=== PATIENT | female | born 1970 | race Caucasian/White ===

== ENCOUNTER 2017-03-01 07:35 | Emergency (ER) | payer OTHER ==
[2017-03-01 07:43] VITALS: BP 154/79; PULSE 85; TEMP 98.5; BMI 29.1
--- NOTE | 2017-03-01 08:35 | PDOC ---
History of Present Illness - General Chief Complaint: Pain, Acute Stated Complaint: NECK PAIN Time Seen by Provider: 03/01/17 08:06 History Source: Patient Exam Limitations: No Limitations - History of Present Illness Initial Comments: CHIEF COMPLAINT: 46 y/o afebrile female with PMH NIDDM, HTN c/o right sided neck pain x 4 days. HISTORY OF PRESENT ILLNESS: The patient is a business asst. She states she wasn' t doing anything when the pain started. It hurts when she turns her head. she has been taking naproxen once a day and it helps a little bit but there is still a lot of pain. She denies neck trauma, fall, f/c, n/v/d, CP, SOB, dizziness, changes in vision/hearing. 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 Vital signs on arrival are within normal limits. REVIEW OF SYSTEMS: GENERAL/CONSTITUTIONAL: No fever/chills. No weakness. No weight change. HEAD, EYES, EARS, NOSE AND THROAT: No change in vision. No ear pain or discharge. No sore throat. MUSCULOSKELETAL: +right sided neck pain. No joint or muscle swelling or pain. No back pain. SKIN: No rash or easy bruising. NEUROLOGIC: No headache, vertigo, loss of consciousness, or loss of sensation. PHYSICAL EXAM: GENERAL: The patient is awake, alert, and fully oriented, in no acute distress. She is well appearing and ambulatory. HEAD: Normal with no signs of trauma. NECK: No midline cervical spine TTP, step offs or deformities. Reproducible pain with palpation of right scalene and trapezius muscles. No knots or spasms appreciated. Pain reproduced with lateral neck movements towards left shoulder. ENT: Pupils equal, round and reactive to light, extraocular movements intact, sclera anicteric, conjunctiva clear. EXTREMITIES: Normal range of motion, no edema. NEUROLOGICAL: Normal speech, normal gait. CN II-XII grossly intact. SKIN: Warm, dry, normal turgor, no rashes or lesions noted. Past History - Past Medical History Allergies/Adverse Reactions: Allergies Allergy/AdvReac Type Severity Reaction Status Date / Time No Known Allergies Allergy Verified 03/01/17 07:43 Home Medications: Ambulatory Orders Cyclobenzaprine HCl [Flexeril 10 mg] 10 mg PO HS PRN #10 tablet 03/01/17 Ibuprofen 800 mg PO TID #20 tablet 03/01/17 Diabetes: Yes HTN: Yes Hypercholesterolemia: Yes (DIET CONTROLLED) - Surgical History Abdominal Surgery: Yes (sleeve 06/29/15) Cholecystectomy: Yes - Reproductive History (#): 8 Para: 6 Therapeutic (s) & number: Yes Spontaneous : 1 - Immunization History Immunization Up to Date: Yes - Psycho/Social/Smoking Cessation Hx Anxiety: No Suicidal Ideation: No Smoking Status: Yes Smoking History: Never smoked Have you smoked in the past 12 months: No Number of Cigarettes Smoked Daily: 0 If you are a former smoker, when did you quit?: 3 YRS AGO Hx Alcohol Use: No Drug/Substance Use Hx: No Substance Use Type: None Hx Substance Use Treatment: No *Physical Exam - Vital Signs Last Vital Signs Temp Pulse Resp BP Pulse Ox 98.5 F 85 18 154/79 100 03/01/17 07:38 03/01/17 07:38 03/01/17 07:38 03/01/17 07:38 03/01/17 07:38 Medical Decision Making - Medical Decision Making A/P: 46 y/o female with right neck muscle strain. Plan is as follows: 1. hcg hcg - negative IM Toradol Will d/c to home with rx for 800mg Ibuprofen and flexeril for night time. Instructed her to take every 8 hours with food and d/c naproxen. Instructed her to apply heating pad, stretch and massage affected area multiple times per day. Suggested she return to the ER with any worsening or concerning symptoms. The patient verbalizes understanding of all instructions, has no further questions and is awaiting discharge. *DC/Admit/Observation/Transfer Diagnosis at time of Disposition: Neck muscle strain Qualifiers: Encounter type: initial encounter Qualified Code(s): S16.1XXA - Strain of muscle, fascia and tendon at neck level, initial encounter - Discharge Dispostion Condition at time of disposition: Good - Prescriptions Prescriptions: Cyclobenzaprine HCl [Flexeril 10 mg] 10 mg PO HS PRN #10 tablet PRN Reason: Muscle Spasms Ibuprofen 800 mg PO TID #20 tablet - Referrals Referrals: Nilton Markham [Primary Care Provider] - - Patient Instructions Printed Discharge Instructions: DI for Neck Sprain Additional Instructions: Discharge Instructions: - - Post Discharge Activity Work/School Note: Back to Work
[2017-03-01] MEDS ORDERED: KETOROLAC TROMETHAMINE 60 MG/2 ML VIAL ONE (09:07)
[2017-03-01] MEDS ORDERED: KETOROLAC TROMETHAMINE 60 MG/2 ML VIAL IM ONE (09:17)
== END 2017-03-01 09:47 | disposition home or self-care (01) ==
LOC: JER 07:35 → JERFT 07:35
PROC: 3E0233Z Introduction of Anti-inflammatory into Muscle, Percutaneous Approach (ICD-10-PCS; principal; 2017-03-01)
DX: S16.1XXA Strain of muscle, fascia and tendon at neck level, initial encounter (principal); I10 Essential (primary) hypertension; E11.9 Type 2 diabetes mellitus without complications; Z79.84 Long term (current) use of oral hypoglycemic drugs; E78.00 Pure hypercholesterolemia, unspecified; X58.XXXA Exposure to other specified factors, initial encounter; Y93.89 Activity, other specified; Y92.89 Other specified places as the place of occurrence of the external cause
CPT/HCPCS: 84703; 99281-25

== ENCOUNTER 2018-04-03 20:11 | Emergency (ER) | payer OTHER ==
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
[2018-04-03 20:28] VITALS: BP 123/78; PULSE 80; TEMP 98.7; BMI 31.6
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
== END 2018-04-03 21:39 | disposition home or self-care (01) ==
LOC: JERFT 20:11
DX: S16.1XXA Strain of muscle, fascia and tendon at neck level, initial encounter (principal); V43.02XA Car driver injured in collision with other type car in nontraffic accident, initial encounter; Y93.89 Activity, other specified; Y92.410 Unspecified street and highway as the place of occurrence of the external cause; S39.012A Strain of muscle, fascia and tendon of lower back, initial encounter; Z33.1 Pregnant state, incidental; Z87.891 Personal history of nicotine dependence; I10 Essential (primary) hypertension; E11.9 Type 2 diabetes mellitus without complications; E78.00 Pure hypercholesterolemia, unspecified; Z98.84 Bariatric surgery status
CPT/HCPCS: 84703; 99281-25

== ENCOUNTER 2018-04-18 16:17 | Emergency (ER) | payer OTHER ==
[2018-04-18 16:39] VITALS: BP 125/71; PULSE 79; TEMP 98.4; BMI 31.6
--- NOTE | 2018-04-18 17:10 | PDOC ---
History of Present Illness - General History Source: Patient Exam Limitations: No Limitations - History of Present Illness Initial Comments: 04/18/18 17:34 The patient is a 47 year old female A2 who is 6.5 weeks with a significant PMH of gestational diabetes hyperlipidemia who presents to the emergency department with vaginal spotting beginning approximately today. The patient states the last few times she has urinated shes noticed blood on the tissue when wiping, and noted a small clot during one episode. The patient denies cramping or vaginal discharge. She reports going to [facility] yesterday for an LITHOGRAPHIC PHOTOGRAPHER APPRENTICE appointment where she received an internal digital exam. The patient denies dysuria, frequency, and urgency. The patient denies chest pain, shortness of breath, headache and dizziness. Denies fever, chills, nausea, vomit, diarrhea and constipation. Allergies: NKA Past surgical history: Cholecystectomy. Elective . Social history: Former smoker. No reported alcohol, or drug use. PCP: Dr. Nolasco LITHOGRAPHIC PHOTOGRAPHER APPRENTICE: [facility] <Cipriano Martinez - Last Filed: 04/18/18 17:33> <Deborah Wong - Last Filed: 04/18/18 20:28> - General Chief Complaint: Vaginal Bleeding Stated Complaint: PCP SENT/VAGINAL BLEEDING/6.5 WKS Time Seen by Provider: 04/18/18 16:51 Past History <Cipriano Martinez - Last Filed: 04/18/18 17:33> - Past Medical History COPD: No Diabetes: Yes HTN: Yes Hypercholesterolemia: Yes (DIET CONTROLLED) - Surgical History Abdominal Surgery: Yes (sleeve 06/29/15) Cholecystectomy: Yes - Reproductive History (#): 8 Para: 6 Therapeutic (s) & number: Yes Spontaneous : 1 - Immunization History Immunization Up to Date: Yes - Suicide/Smoking/Psychosocial Hx Smoking Status: Yes Smoking History: Never smoked Have you smoked in the past 12 months: No Number of Cigarettes Smoked Daily: 0 If you are a former smoker, when did you quit?: 3 YRS AGO Hx Alcohol Use: No Drug/Substance Use Hx: No Substance Use Type: None Hx Substance Use Treatment: No <Deborah Wong - Last Filed: 04/18/18 20:28> - Past Medical History Allergies/Adverse Reactions: Allergies Allergy/AdvReac Type Severity Reaction Status Date / Time No Known Allergies Allergy Verified 04/18/18 16:34 Home Medications: Ambulatory Orders 95/Iron Fum/Folic/Dha [ + Dha Combo Pack] 1 each PO 1XPACU #30 combo..pkg 04/03/18 Review of Systems - Review of Systems Able to Perform ROS?: Yes Comments:: 04/18/18 17:33 GENERAL/CONSTITUTIONAL: No fever or chills. No weakness. HEAD, EYES, EARS, NOSE AND THROAT: No change in vision. No ear pain or discharge. No sore throat. GASTROINTESTINAL: No nausea, vomiting, diarrhea or constipation. GENITOURINARY: (+) Vaginal spotting. No dysuria, frequency, or change in urination. CARDIOVASCULAR: No chest pain or shortness of breath. RESPIRATORY: No cough, wheezing, or hemoptysis. MUSCULOSKELETAL: No joint or muscle swelling or pain. No neck or back pain. SKIN: No rash NEUROLOGIC: No headache, vertigo, loss of consciousness, or change in strength/ sensation. ENDOCRINE: No increased thirst. No abnormal weight change. HEMATOLOGIC/LYMPHATIC: No anemia, easy bleeding, or history of blood clots. ALLERGIC/IMMUNOLOGIC: No hives or skin allergy. <Cipriano Martinez - Last Filed: 04/18/18 17:33> *Physical Exam - Vital Signs Last Vital Signs Temp Pulse Resp BP Pulse Ox 98.4 F 79 16 125/71 100 04/18/18 16:34 04/18/18 16:34 04/18/18 16:34 04/18/18 16:34 04/18/18 16:34 - Physical Exam Comments: 04/18/18 17:33 Constitutional: Awake, alert, oriented. No acute distress. Head: Normocephalic. Atraumatic Cardiovascular: Regular rate. Regular rhythm. S1, S2 regular. Distal pulses are 2+ and symmetric. Pulmonary/Chest: No evidence of respiratory distress. Clear to auscultation bilaterally No wheezing, rales or rhonchi. Abdominal: Soft and non-distended. There is no tenderness. No rebound, guarding or rigidity. No organomegaly. No palpable masses. Good bowel sounds. Pelvic: Some blood in vault. Os closed. No CMT or adnexal tenderness. Back: No CVA tenderness. Musculoskeletal: No edema. No cyanosis. No clubbing. Full range of motion in all extremities. No calf tenderness. Radial/pedal pulses are intact and 2+ bilaterally Skin: Skin is warm and dry. No petechiae. No purpura. Neurological: Alert and oriented to person, place, and time. Cranial nerves II -XII are grossly intact. Normal speech. Strength is grossly symmetric. No sensory deficits. Psychiatric: Good eye contact. Normal interaction, affect and behavior. <Cipriano Martinez - Last Filed: 04/18/18 17:33> - Vital Signs Last Vital Signs Temp Pulse Resp BP Pulse Ox 98.4 F 79 16 125/71 100 04/18/18 16:34 04/18/18 16:34 04/18/18 16:34 04/18/18 16:34 04/18/18 16:34 <Deborah Wong - Last Filed: 04/18/18 20:28> ED Treatment Course - LABORATORY CBC & Chemistry Diagram: 04/18/18 17:27 04/18/18 17:27 <Deborah Wong - Last Filed: 04/18/18 20:28> Medical Decision Making - Medical Decision Making 04/18/18 17:36 a/p: 47yo at 6.5 weeks gestation presents for eval of scant amount of vaginal bleeding while wiping today -pt with hx of spontaneous ab -no cramping -seen at [address] [place] [address] yesterday, no ultrasound yet with this preg -will send labs -tvus -concern for threatened ab -will monitor and reassess 04/18/18 18:35 beta pending probable early preg on ultrasound around 5 weeks 5 days will continue to monitor 04/18/18 18:58 beta hcg and type and screen pending 04/18/18 19:25 pt is O+ on prior type and screen 04/18/18 20:22 beta hcg 3800 pt will need repeat beta hcg in 2 days and repeat ultrasound in 1 week concern for threatened ab 04/18/18 20:25 pt feeling better has appt [facility] tomorrow with director of elementary education discussed repeat labs on sunday for repeat beta hcg answered all quesitons stable for d/c to home <Deborah Wong - Last Filed: 04/18/18 20:28> *DC/Admit/Observation/Transfer - Attestations Scribe Attestion: 04/18/18 17:35 Documentation prepared by Cipriano Martinez, acting as medical operations supervisor for Deborah Wong DO. <Cipriano Martinez - Last Filed: 04/18/18 17:33> - Discharge Dispostion Decision to Admit order: No - Attestations Physician Attestion: 04/18/18 20:28 I, Dr. Deborah Wong DO, attest that this document has been prepared under my direction and personally reviewed by me in its entirety. I further attest, that it accurately reflects all work, treatment, procedures and medical decision -making performed by me. <Deborah Wong - Last Filed: 04/18/18 20:28> Diagnosis at time of Disposition: Threatened - Discharge Dispostion Disposition: HOME Condition at time of disposition: Stable - Referrals Referrals: Milly Nolasco [Primary Care Provider] - Kenneth Berman MD [Staff Physician] - - Patient Instructions Printed Discharge Instructions: DI for Threatened Additional Instructions: Please go to your materials director tomorrow as scheduled. Please return to the ED for a repeat Beta HCG on sunday. Please return to the ED for a repeat evaluation if you start to bleed heavily - more than 2 pads an hour for over 2 hours. Please follow up with your PMD. Please take vitamins. Please return to the ED with any further concerns or complaints. - Post Discharge Activity
[2018-04-18 18:07] LABS: BASO % 0.7 % (0-2.0); EOS % 1.2 % (0-4.5); HEMATOCRIT 35.6 % (32.4-45.2); HEMOGLOBIN 10.8 GM/dL (10.7-15.3); LYMPH % 35.4 % (8-40); MCH 20.8 pg (25.7-33.7); MCHC 30.4 g/dl (32.0-36.0); MEAN CELL VOLUME 68.5 fl (80-96); MEAN PLT VOLUME 8.7 fl (7.5-11.1); MONO % 6.8 % (3.8-10.2); NEUT % 55.9 % (42.8-82.8); PLATELET COUNT 419 K/MM3 (134-434); RBC 5.19 M/mm3 (3.60-5.2); URINE APPEARANCE CLEAR; URINE BILIRUBIN NEGATIVE (<2.0 mg/dL); URINE COLOR STRAW; URINE GLUCOSE (UA) NEGATIVE (NEGATIVE); URINE KETONE NEGATIVE (NEGATIVE); URINE LEUK ESTERASE NEGATIVE (NEGATIVE); URINE NITRITE NEGATIVE (NEGATIVE); URINE PROTEIN NEGATIVE (NEGATIVE); URINE UROBILINOGEN NEGATIVE mg/dL (0.2-1.0)
[2018-04-18 18:13] LABS: ADD RBC MORPHOLOGY YES
[2018-04-18 18:35] LABS: ALBUMIN 3.8 g/dl (3.4-5.0); ANION GAP 8 (8-16); BLOOD UREA NITROGEN 15 mg/dL (7-18); CALCIUM 9.3 mg/dL (8.5-10.1); CHLORIDE 102 mmol/L (98-107); CO2 28 mmol/L (21-32); GLUCOSE,RANDOM 96 mg/dL (74-106); POTASSIUM 3.7 mmol/L (3.5-5.1); SGPT/ALT 19 U/L (12-78); SODIUM 138 mmol/L (136-145)
[2018-04-18 18:38] LABS: ALK PHOS 69 U/L (45-117); BILIRUBIN,TOTAL 0.5 mg/dL (0.2-1.0); CREATININE 0.7 mg/dL (0.55-1.02); SGOT/AST 10 U/L (15-37)
[2018-04-18 22:36] LABS: ANISOCYTOSIS 1+; MACROCYTOSIS 1+; PLATELET ESTIMATE ADEQUATE
== END 2018-04-18 21:07 | disposition home or self-care (01) ==
LOC: JER 16:17
DX: O26.891 Other specified pregnancy related conditions, first trimester (principal); O20.0 Threatened abortion; Z3A.01 Less than 8 weeks gestation of pregnancy; E78.5 Hyperlipidemia, unspecified; Z86.32 Personal history of gestational diabetes; O16.1 Unspecified maternal hypertension, first trimester; Z87.891 Personal history of nicotine dependence; Z90.49 Acquired absence of other specified parts of digestive tract; Z98.84 Bariatric surgery status
CPT/HCPCS: 36415; 76817-TC; 80053; 81003; 84702; 85025; 99281-25

== ENCOUNTER 2019-03-27 09:56 | Emergency (ER) | payer OTHER | END 2019-03-27 16:38 | disposition home or self-care (01) | LOC: JER 09:56 ==

== ENCOUNTER 2019-10-15 22:44 | Emergency (ER) | payer OTHER ==
[2019-10-15 22:50] VITALS: BP 177/102; PULSE 105; TEMP 97.9; BMI 33.3
--- NOTE | 2019-10-16 00:01 | PDOC ---
Attending Attestation - Resident Resident Name: Shar Mi - ED Attending Attestation I have performed the following: I have examined & evaluated the patient, The case was reviewed & discussed with the resident, I agree w/resident's findings & plan - HPI HPI: 10/16/19 01:02 see resident hpi - Physicial Exam PE: 10/16/19 01:02 agree with resident exam - Medical Decision Making 10/16/19 01:02 49-year-old female with upper respiratory symptoms cough and right ear pain after forcefully attempting to unplug her nose Exam is consistent with barotrauma to the right ear She is outside the window for antivirals Will DC on antitussives with recommended outpatient follow-up
--- NOTE | 2019-10-16 00:01 | PDOC ---
History of Present Illness - General Chief Complaint: Ear Problem Stated Complaint: THROAT/EAR PAIN Time Seen by Provider: 10/15/19 23:58 - History of Present Illness Initial Comments: 49 10/16/19 00:00 Past History - Past Medical History Allergies/Adverse Reactions: Allergies Allergy/AdvReac Type Severity Reaction Status Date / Time No Known Allergies Allergy Verified 03/27/19 10:18 Home Medications: Ambulatory Orders Diclofenac Sodium [Diclofenac Sodium ER] 100 mg PO ASDIR 03/27/19 Ranitidine [Zantac -] 150 mg PO BID 03/27/19 metFORMIN HCL [Metformin ER Osmotic] 1,000 mg PO DAILY 03/27/19 COPD: No Diabetes: Yes HTN: Yes Hypercholesterolemia: Yes (DIET CONTROLLED) - Surgical History Abdominal Surgery: Yes (sleeve 06/29/15) Cholecystectomy: Yes - Reproductive History (#): 9 Para: 6 Therapeutic (s) & number: Yes Spontaneous : 2 - Immunization History Immunization Up to Date: Yes - Psycho Social/Smoking Cessation Hx Smoking Status: Yes Smoking History: Never smoked Have you smoked in the past 12 months: No Number of Cigarettes Smoked Daily: 0 If you are a former smoker, when did you quit?: 3 YRS AGO Hx Alcohol Use: No Drug/Substance Use Hx: No Substance Use Type: None Hx Substance Use Treatment: No *Physical Exam - Vital Signs Last Vital Signs Temp Pulse Resp BP Pulse Ox 97.9 F 105 H 20 177/102 H 100 10/15/19 22:46 10/15/19 22:46 10/15/19 22:46 10/15/19 22:46 10/15/19 22:46
--- NOTE | 2019-10-16 00:24 | PDOC ---
History of Present Illness - General Chief Complaint: Ear Problem Stated Complaint: THROAT/EAR PAIN Time Seen by Provider: 10/15/19 23:58 - History of Present Illness Initial Comments: 10/16/19 00:18 49F with pmh of htn and dm2 presenting with cough non-stop for 3 days as well as fever (101 at home post tylenol at 5pm) and right ear pain from blowing her nose. No other complain. No sick contacts. No fever here. Denies n/v/d. Past History - Past Medical History Allergies/Adverse Reactions: Allergies Allergy/AdvReac Type Severity Reaction Status Date / Time No Known Allergies Allergy Verified 03/27/19 10:18 Home Medications: Ambulatory Orders Diclofenac Sodium [Diclofenac Sodium ER] 100 mg PO ASDIR 03/27/19 Ranitidine [Zantac -] 150 mg PO BID 03/27/19 metFORMIN HCL [Metformin ER Osmotic] 1,000 mg PO DAILY 03/27/19 Benzonatate [Tessalon Pearls -] 100 mg PO TID #90 capsule 10/16/19 COPD: No Diabetes: Yes HTN: Yes Hypercholesterolemia: Yes (DIET CONTROLLED) - Surgical History Abdominal Surgery: Yes (sleeve 06/29/15) Cholecystectomy: Yes - Reproductive History (#): 9 Para: 6 Therapeutic (s) & number: Yes Spontaneous : 2 - Immunization History Immunization Up to Date: Yes - Psycho Social/Smoking Cessation Hx Smoking Status: Yes Smoking History: Never smoked Have you smoked in the past 12 months: No Number of Cigarettes Smoked Daily: 0 If you are a former smoker, when did you quit?: 3 YRS AGO Hx Alcohol Use: No Drug/Substance Use Hx: No Substance Use Type: None Hx Substance Use Treatment: No Review of Systems - Review of Systems Able to Perform ROS?: Yes Is the patient limited Austrian proficient: No Constitutional: No: Symptoms Reported HEENTM: Yes: See HPI Respiratory: Yes: See HPI Cardiac (ROS): No: Symptoms Reported ABD/GI: No: Symptoms Reported : No: Symptoms Reported Musculoskeletal: No: Symptoms Reported Integumentary: No: Symptoms Reported Neurological: No: Symptoms reported All Other Systems: Reviewed and Negative *Physical Exam - Vital Signs Last Vital Signs Temp Pulse Resp BP Pulse Ox 97.9 F 105 H 20 177/102 H 100 10/15/19 22:46 10/15/19 22:46 10/15/19 22:46 10/15/19 22:46 10/15/19 22:46 - Physical Exam General Appearance: Yes: Nourished, Appropriately Dressed. No: Apparent Distress HEENT: positive: EOMI, ARNIE, Other (minor barotrauma to the right ear, some burst capillaries, Tm intact. ) Respiratory/Chest: positive: Lungs Clear, Normal Breath Sounds. negative: Chest Tender, Respiratory Distress Cardiovascular: positive: Tachycardia Gastrointestinal/Abdominal: positive: Normal Bowel Sounds, Flat, Soft. negative : Tender Extremity: positive: Normal Capillary Refill, Normal Inspection, Normal Range of Motion Integumentary: positive: Normal Color, Dry, Warm Neurologic: positive: Fully Oriented, Alert, Normal Mood/Affect, Normal Response Medical Decision Making - Medical Decision Making 10/16/19 00:26 49f sick with cold symptoms for 3 days. Out of the window for flu therapy. Will send home with franky vergara for cough. Sudofed not recommended due to high BP. Will send home with recommendations and return precautions. Discharge - Discharge Information Problems reviewed: Yes Clinical Impression/Diagnosis: Cough, Rhinovirus Condition: Fair Disposition: HOME - Admission No - Additional Discharge Information Prescriptions: Benzonatate [Tessalon Pearls -] 100 mg PO TID #90 capsule - Follow up/Referral - Patient Discharge Instructions Patient Printed Discharge Instructions: How to Avoid a Cold or Flu Additional Instructions: Follow up with your primary care physician within the next 3 days. Avoid blowing your nose too hard as you may damage your eardrum. Come back to the emergency department for any new, worsening or concerning symptom. - Post Discharge Activity
== END 2019-10-16 00:44 | disposition home or self-care (01) ==
LOC: JER 22:44
DX: B34.8 Other viral infections of unspecified site (principal); R05 Cough; I10 Essential (primary) hypertension; E78.00 Pure hypercholesterolemia, unspecified; E11.9 Type 2 diabetes mellitus without complications; Z79.84 Long term (current) use of oral hypoglycemic drugs; Z90.49 Acquired absence of other specified parts of digestive tract; Z98.84 Bariatric surgery status
CPT/HCPCS: 99281-25

== ENCOUNTER 2021-06-01 06:55 | Day surgery (SDC) | payer OTHER ==
[2021-05-31 14:34] VITALS: BMI 31.6
[2021-06-01] MEDS ORDERED: BUPIVACAINE HCL/PF 0.25% (2.5MG/ML) 10 ML VIAL ONE (09:24)
[2021-06-01] MEDS ORDERED: LIDOCAINE HCL/PF 2% SDV 5ML VIAL ONE (09:43)
[2021-06-01] MEDS ORDERED: PROPOFOL 20 ML ONE ×2 (09:44)
[2021-06-01] MEDS ORDERED: SUCCINYLCHOLINE CHLORIDE 200 MG/10 ML SYRINGE ONE (09:44)
[2021-06-01] MEDS ORDERED: oxyCODONE HCL 5 MG TABLET PO PRN (11:02)
[2021-06-01] MEDS ORDERED: PROMETHAZINE HCL 25 MG/1 ML VIAL IVPB PRN (11:02)
[2021-06-01] MEDS ORDERED: ONDANSETRON 4 MG/2 ML VIAL IVPUSH PRN (11:02)
[2021-06-01] MEDS ORDERED: ACETAMINOPHEN 1000 MG/100 ML VIAL (NON FORMULARY) IVPB ONE ×2 (11:38→11:51)
[2021-06-01] MEDS ORDERED: LACTATED RINGERS SOLUTION 1,000 ML/1,000 ML INFUS.BAG IV SCH (12:00)
[2021-06-01 13:12] VITALS: BP 110/65; PULSE 89; TEMP 98
== END 2021-06-01 13:00 | disposition home or self-care (01) ==
LOC: FASU 06:55
PROVIDERS: ATTEND Orthopaedic Surgery Hand Surgery
PROC: 0JBD0ZZ Excision of Right Upper Arm Subcutaneous Tissue and Fascia, Open Approach (ICD-10-PCS; 2021-06-01)
PROC: 0LQ30ZZ Repair Right Upper Arm Tendon, Open Approach (ICD-10-PCS; principal; 2021-06-01 10:05)
DX: M77.11 Lateral epicondylitis, right elbow (principal)
CPT/HCPCS: 82962; 84703; 88304-TC; 94760; J0131

== ENCOUNTER 2022-01-12 09:58 | Day surgery (SDC) | payer OTHER ==
[2022-01-10 12:14] VITALS: BMI 31.6
[2022-01-12] MEDS ORDERED: PROPOFOL 20 ML ONE ×2 (12:07→13:31)
[2022-01-12] MEDS ORDERED: MIDAZOLAM HCL 2 MG/2 ML SINGLE DOSE VIAL ONE (12:07)
[2022-01-12] MEDS ORDERED: ROCURONIUM BROMIDE 50 MG/5 ML SYRINGE ONE ×2 (12:08→14:43)
[2022-01-12] MEDS ORDERED: NEOSTIGMINE METHYLSULFATE 0.5 MG/ML - 10 ML MDV ONE (15:21)
[2022-01-12] MEDS ORDERED: ONDANSETRON 4 MG/2 ML VIAL IVPUSH PRN (15:40)
[2022-01-12] MEDS ORDERED: oxyCODONE HCL 5 MG TABLET PO PRN (15:40)
[2022-01-12] MEDS ORDERED: PROMETHAZINE HCL 25 MG/1 ML VIAL IVPUSH PRN (15:40)
[2022-01-12] MEDS ORDERED: KETOROLAC TROMETHAMINE 30 MG/1 ML VIAL IVPUSH ONE ×2 (15:41→16:05)
[2022-01-12] MEDS ORDERED: ACETAMINOPHEN 1000 MG/100 ML BAG IVPB ONE ×2 (15:41→16:10)
[2022-01-12] MEDS ORDERED: LACTATED RINGERS SOLUTION 1,000 ML IV SCH (15:45)
[2022-01-12 16:54] VITALS: PULSE 84; TEMP 97.8
[2022-01-12] MEDS ORDERED: oxyCODONE HCL 5 MG TABLET ONE (17:26)
[2022-01-12 18:08] VITALS: BP 117/75
== END 2022-01-12 18:35 | disposition home or self-care (01) ==
LOC: FASU 09:58
PROVIDERS: ATTEND Orthopaedic Surgery Sports Medicine
PROC: 0SB94ZZ Excision of Right Hip Joint, Percutaneous Endoscopic Approach (ICD-10-PCS; 2022-01-12)
PROC: 0SQ94ZZ Repair Right Hip Joint, Percutaneous Endoscopic Approach (ICD-10-PCS; principal; 2022-01-12 13:34)
DX: M76.01 Gluteal tendinitis, right hip (principal)
CPT/HCPCS: 82962; 84703; 94760

== ENCOUNTER 2022-05-10 19:19 | Emergency (ER) | payer OTHER ==
[2022-05-10 19:31] VITALS: BP 150/81; PULSE 76; TEMP 98.9; BMI 31.6
[2022-05-10] MEDS ORDERED: ACETAMINOPHEN 500 MG TABLET (FP) PO ONE (21:01)
[2022-05-10] MEDS ORDERED: LIDOCAINE 5% TOPICAL PATCH TP ONE (21:01)
[2022-05-10] MEDS ORDERED: METHOCARBAMOL 500 MG TABLET PO ONE (21:01)
[2022-05-10] MEDS ORDERED: KETOROLAC TROMETHAMINE 30 MG/1 ML VIAL IM ONE (21:01)
[2022-05-10] MEDS ORDERED: LIDOCAINE 5% TOPICAL PATCH ONE (21:05)
[2022-05-10] MEDS ORDERED: ACETAMINOPHEN 325 MG TABLET (FP) ONE (21:05)
[2022-05-10] MEDS ORDERED: METHOCARBAMOL 500 MG TABLET ONE (21:05)
[2022-05-10] MEDS ORDERED: KETOROLAC TROMETHAMINE 30 MG/1 ML VIAL ONE (21:05)
[2022-05-10] MEDS ORDERED: LIDOCAINE PATCH REMOVAL MC SCH (22:00)
== END 2022-05-10 23:02 | disposition home or self-care (01) ==
LOC: JER 19:19
PROC: 3E023GC Introduction of Other Therapeutic Substance into Muscle, Percutaneous Approach (ICD-10-PCS; principal; 2022-05-10)
DX: M25.551 Pain in right hip (principal)
CPT/HCPCS: 99284-25

== ENCOUNTER 2022-09-21 08:19 | Emergency (ER) | payer OTHER ==
[2022-09-21 09:00] VITALS: BP 159/92; PULSE 79; RESP 18; TEMP 97.9; BMI 30.7
[2022-09-21] MEDS ORDERED: ACETAMINOPHEN 325 MG TABLET (FP) PO ONE (11:45)
[2022-09-21] MEDS ORDERED: METOCLOPRAMIDE HCL 10 MG TABLET (FP) PO ONE ×2 (11:46→12:40)
[2022-09-21 12:23] LABS: EOS % 3.8 % (0-4.5); HEMOGLOBIN 11.5 GM/dL (10.7-15.3); LYMPH % 41.6 % (8-40); MCHC 32.1 g/dl (32.0-36.0); MEAN CELL VOLUME 81.2 fl (80-96); MEAN PLT VOLUME 8.3 fl (7.5-11.1); MONO % 7.7 % (3.8-10.2); NEUT % 45.9 % (42.8-82.8); PLATELET COUNT 312 10^3/uL (134-434); RBC 4.44 M/mm3 (3.60-5.2); RDW 16.1 % (11.6-15.6); WHITE BLOOD COUNT 8.1 K/mm3 (4.0-10.0)
[2022-09-21] MEDS ORDERED: ACETAMINOPHEN 325 MG TABLET (FP) ONE (12:40)
[2022-09-21 12:53] LABS: BLOOD UREA NITROGEN 8.2 mg/dL (7-18)
[2022-09-21 12:54] LABS: CALCIUM 9.1 mg/dL (8.5-10.1)
[2022-09-21 12:55] LABS: ALBUMIN 3.3 g/dl (3.4-5.0)
[2022-09-21 12:56] LABS: BILIRUBIN,TOTAL 0.6 mg/dL (0.2-1)
[2022-09-21 12:58] LABS: CREATININE 0.7 mg/dL (0.55-1.3); TOT PROT 7.1 g/dl (6.4-8.2)
== END 2022-09-21 15:21 | disposition home or self-care (01) ==
LOC: JER 08:19
DX: R20.2 Paresthesia of skin (principal)
CPT/HCPCS: 36415; 70450-TC; 80053; 85025; 93005; 93010; 99285-25

== ENCOUNTER 2022-11-20 08:04 | Emergency (ER) | payer OTHER ==
[2022-11-20 08:19] VITALS: RESP 18; BMI 30.6
[2022-11-20] MEDS ORDERED: FAMOTIDINE 20 MG TABLET PO ONE (09:30)
[2022-11-20] MEDS ORDERED: MAG HYDROX/AL HYDROX/SIMETH 30 ML UNIT-DOSE CUP PO ONE (09:30)
[2022-11-20] MEDS ORDERED: MAG HYDROX/AL HYDROX/SIMETH 30 ML UNIT-DOSE CUP ONE (09:41)
[2022-11-20] MEDS ORDERED: FAMOTIDINE 20 MG TABLET ONE (09:41)
[2022-11-20] MEDS ORDERED: LACTATED RINGERS SOLUTION 1000 ML INFUS.BAG IV ONE (10:52)
[2022-11-20 11:09] LABS: HEMATOCRIT 33.6 % (32.4-45.2); HEMOGLOBIN 10.9 GM/dL (10.7-15.3); MCH 26.1 pg (25.7-33.7); MCHC 32.4 g/dl (32.0-36.0); MEAN CELL VOLUME 80.6 fl (80-96); MEAN PLT VOLUME 8.4 fl (7.5-11.1); PLATELET COUNT 306 10^3/uL (134-434); RBC 4.17 M/mm3 (3.60-5.2); RDW 16.2 % (11.6-15.6); WHITE BLOOD COUNT 6.4 K/mm3 (4.0-10.0)
[2022-11-20 11:25] LABS: CHLORIDE 103 mmol/L (98-107); SODIUM 138 mmol/L (136-145)
[2022-11-20 11:28] LABS: ALBUMIN 3.1 g/dl (3.4-5.0); ANION GAP 5 MMOL/L (8-16); BLOOD UREA NITROGEN 8.4 mg/dL (7-18); CALCIUM 8.8 mg/dL (8.5-10.1); CO2 30 mmol/L (21-32); GLUCOSE,RANDOM 88 mg/dL (74-106); LIPASE 93 U/L (73-393)
[2022-11-20 11:32] LABS: CREATININE 0.6 mg/dL (0.55-1.3); SGOT/AST 10 U/L (15-37); SGPT/ALT 18 U/L (13-61); TOT PROT 6.6 g/dl (6.4-8.2)
[2022-11-20 11:33] LABS: BILIRUBIN,TOTAL 0.5 mg/dL (0.2-1)
[2022-11-20 11:34] LABS: ALK PHOS 74 U/L (45-117)
[2022-11-20 11:42] VITALS: BP 114/70; PULSE 60; TEMP 98.5
[2022-11-20 11:46] LABS: EPI CELLS 6 /uL (0-25.1); HYALINE CASTS 0 /uL (0-3.1); PH,URINE 5.5 (5.0-8.0); URINE APPEARANCE CLEAR; URINE BACTERIA 6151 /uL (0-1359); URINE BILIRUBIN NEGATIVE (NEGATIVE); URINE COLOR YELLOW; URINE GLUCOSE (UA) NEGATIVE (NEGATIVE); URINE KETONE NEGATIVE (NEGATIVE); URINE LEUK ESTERASE NEGATIVE (NEGATIVE); URINE NITRITE NEGATIVE (NEGATIVE); URINE PROTEIN NEGATIVE (NEGATIVE); URINE RBC 20 /uL (0-23.9); URINE UROBILINOGEN 0.2 mg/dL (0.2-1.0); URINE WBC 15 /uL (0-25.8)
== END 2022-11-20 14:16 | disposition home or self-care (01) ==
LOC: JER 08:04
DX: K29.70 Gastritis, unspecified, without bleeding (principal)
CPT/HCPCS: 36415; 71045-TC-FY; 80053; 81003; 82272; 83690; 84484; 84702; 85027; 87086; 87186; 93005; 93010; 99285-25

== ENCOUNTER 2023-01-09 05:24 | Day surgery (SDC) | payer OTHER ==
[2023-01-04 16:52] VITALS: BMI 32.1
[2023-01-09 12:04] VITALS: TEMP 97.5
[2023-01-09 13:26] VITALS: BP 132/70; PULSE 58; RESP 19
== END 2023-01-09 12:37 | disposition home or self-care (01) ==
LOC: JASU-ENDO 05:24
PROVIDERS: ATTEND Internal Medicine Gastroenterology
PROC: 0DB78ZX Excision of Stomach, Pylorus, Via Natural or Artificial Opening Endoscopic, Diagnostic (ICD-10-PCS; principal; 2023-01-09 12:00)
DX: K29.50 Unspecified chronic gastritis without bleeding (principal); K25.9 Gastric ulcer, unspecified as acute or chronic, without hemorrhage or perforation; K44.9 Diaphragmatic hernia without obstruction or gangrene; K31.7 Polyp of stomach and duodenum; Z98.84 Bariatric surgery status
CPT/HCPCS: 81025; 82962; 88305-TC; 88342-TC

== ENCOUNTER 2023-02-27 04:20 | Day surgery (SDC) | payer OTHER ==
[2023-02-26 07:44] VITALS: BMI 32.1
[2023-02-27 08:03] VITALS: TEMP 98
[2023-02-27 12:07] VITALS: BP 120/48; PULSE 65; RESP 19
== END 2023-02-27 10:20 | disposition home or self-care (01) ==
LOC: JASU-ENDO 04:20
PROVIDERS: ATTEND Internal Medicine Gastroenterology
PROC: 0DJD8ZZ Inspection of Lower Intestinal Tract, Via Natural or Artificial Opening Endoscopic (ICD-10-PCS; principal; 2023-02-27 08:45)
DX: Z12.11 Encounter for screening for malignant neoplasm of colon (principal); K57.30 Diverticulosis of large intestine without perforation or abscess without bleeding; K64.8 Other hemorrhoids
CPT/HCPCS: 81025; 82962

== ENCOUNTER 2023-10-15 09:35 | Emergency (ER) | payer OTHER ==
[2023-10-15 09:46] VITALS: BP 139/88; PULSE 63; RESP 20; TEMP 98; BMI 29.9
[2023-10-15] MEDS ORDERED: IBUPROFEN 600 MG TABLET (FP) PO ONE ×2 (09:55→10:07)
== END 2023-10-15 10:44 | disposition home or self-care (01) ==
LOC: JER 09:35 → JERFT 09:35
DX: S63.602A Unspecified sprain of left thumb, initial encounter (principal); M79.645 Pain in left finger(s); W01.0XXA Fall on same level from slipping, tripping and stumbling without subsequent striking against object, initial encounter
CPT/HCPCS: 73130-TC-LT-FY; 99283-25

== ENCOUNTER 2023-12-03 11:11 | Emergency (ER) | payer OTHER ==
[2023-12-03 11:30] VITALS: BP 159/69; PULSE 85; RESP 18; TEMP 98; BMI 33.1
[2023-12-03 13:02] LABS: BASO % 1.3 % (0-2.0); EOS % 2.8 % (0-4.5); HEMATOCRIT 29.6 % (32.4-45.2); HEMOGLOBIN 8.9 GM/dL (10.7-15.3); LYMPH % 35.5 % (8-40); MCH 20.7 pg (25.7-33.7); MEAN CELL VOLUME 69.1 fl (80-96); MEAN PLT VOLUME 7.2 fl (7.5-11.1); MONO % 7.4 % (3.8-10.2); PLATELET COUNT 371 10^3/uL (134-434); RBC 4.28 M/mm3 (3.60-5.2)
[2023-12-03 13:18] LABS: POTASSIUM 4.5 mmol/L (3.5-5.1)
[2023-12-03 13:20] LABS: ALBUMIN 3.4 g/dl (3.4-5.0); BLOOD UREA NITROGEN 12.7 mg/dL (7-18)
[2023-12-03 13:23] LABS: CREATININE 0.6 mg/dL (0.55-1.3)
[2023-12-03 13:25] LABS: BILIRUBIN,TOTAL 0.4 mg/dL (0.2-1); TOT PROT 7.1 g/dl (6.4-8.2)
== END 2023-12-03 14:01 | disposition home or self-care (01) ==
LOC: JER 11:11
DX: R42 Dizziness and giddiness (principal); I10 Essential (primary) hypertension
CPT/HCPCS: 36415; 80053; 85025; 93005; 93010; 99284-25

== ENCOUNTER 2025-08-10 18:54 | Emergency (ER) | payer OTHER ==
[2025-08-10 19:03] VITALS: BP 140/80; PULSE 102; RESP 17; TEMP 97.8; BMI 30.7
[2025-08-10] MEDS ORDERED: LIDOCAINE 5% TOPICAL PATCH ONE ×2 (20:31→20:32)
[2025-08-10] MEDS ORDERED: ACETAMINOPHEN INJECTION 100 ML ONE (20:31)
[2025-08-10] MEDS: LIDOCAINE 5% TOPICAL PATCH TP ONE ×2 (20:48→20:53)
[2025-08-10] MEDS: ACETAMINOPHEN 1000 MG/100 ML BAG IVPB ONE (20:48)
[2025-08-10 20:52] LABS: ABSOLUTE IMMATURE GRANULOCYTES 0.04 x10^3/uL (0.0-0.031); BASOPHILS # 0.07 x10^3/uL (0.01-0.08); EOSINOPHIL % 2.7 % (0.7-5.8); EOSINOPHILS # 0.24 x10^3/uL (0.04-0.36); MCHC 30.5 g/dl (32.2-35.5); MEAN CELL VOLUME 84.0 fl (79.4-94.8); MEAN PLT VOLUME 9.1 fl (9.4-12.3); MONOCYTE # 0.80 x10^3/uL (0.24-0.86); MONOCYTE % 9.1 % (4.7-12.5); RDW 16.1 % (12.3-16.6)
[2025-08-10 21:30] LABS: GLUCOSE,RANDOM 162.0 mg/dL (74-106); TOT PROT 7.1 g/dl (6.4-8.2)
[2025-08-10 21:31] LABS: CO2 25.0 mmol/L (21-32)
[2025-08-10 21:33] LABS: ALK PHOS 86.0 U/L (40-150)
[2025-08-10 21:35] LABS: CREATININE 0.7 mg/dL (0.55-1.3); SGOT/AST 16.0 U/L (5-34); SGPT/ALT 15.0 U/L (0-55)
[2025-08-10] MEDS: LIDOCAINE PATCH REMOVAL MC SCH ×2 (22:02)
[2025-08-12 00:39] LABS: HCV DIAGNOSTIC IN-HOUSE W/RFLX NON-REACTIVE (NONREACTIVE); HIV INTERPRETATION NEGATIVE (NEGATIVE)
== END 2025-08-10 23:28 | disposition home or self-care (01) ==
LOC: JER 18:54
PROC: 3E033NZ Introduction of Analgesics, Hypnotics, Sedatives into Peripheral Vein, Percutaneous Approach (ICD-10-PCS; principal; 2025-08-10)
DX: S80.01XA Contusion of right knee, initial encounter (principal); S80.02XA Contusion of left knee, initial encounter; M25.511 Pain in right shoulder; R07.89 Other chest pain; M25.521 Pain in right elbow; R55 Syncope and collapse; R42 Dizziness and giddiness; R51.9 Headache, unspecified; W10.8XXA Fall (on) (from) other stairs and steps, initial encounter; Y92.009 Unspecified place in unspecified non-institutional (private) residence as the place of occurrence of the external cause
CPT/HCPCS: 36415; 70450-TC; 71046-TC-FY; 73030-TC-RT-FY; 73070-TC-RT-FY; 80053; 84484; 85025; 86803; 87389; 93005; 93010; 96374; 99285-25